=== PATIENT | female | born 1995 | race Two or more races ===

== ENCOUNTER 2019-05-23 19:51 | Emergency (ER) | payer MEDICAID ==
[2019-05-23 20:26] VITALS: BP 117/65
--- NOTE | 2019-05-23 20:50 | ED ---
Upper Extremity Pain - HPI Summary HPI Summary: 23 yr old female with the complaint of left forearm pain and tingling. Onset of pain a couple of weeks ago. The pain is present for prolonged times and she gets tingling in her fingers at times in that hand. She has no pain in the upper arm or chest. No SOB. She stopped control not too long ago. Her symptoms are moderate. - History of Current Complaint Chief Complaint: UCUpperExtremity Stated Complaint: LT ARM NUMBNESS Time Seen by Provider: 05/23/19 20:34 Hx Last Menstrual Period: 05/12/19 - Allergies/Home Medications Allergies/Adverse Reactions: Allergies Allergy/AdvReac Type Severity Reaction Status Date / Time metronidazole [From Flagyl] Allergy Severe throat Verified 05/23/19 20:12 swelling, confusion Home Medications: Home Medications NK [No Home Medications Reported] 05/23/19 [History Confirmed 05/23/19] PMH/Surg Hx/FS Hx/Imm Hx Infectious Disease History: No Infectious Disease History: Denies: Traveled Outside the [place] in Last 30 Days - Family History Known Family History: Positive: None - Social History Occupation: Student Alcohol Use: Occasionally Substance Use Type: Reports: None Smoking Status (MU): Never Smoked Tobacco Review of Systems Constitutional: Negative Negative: Chest Pain Negative: Shortness Of Breath Positive: Other - forearm pain All Other Systems Reviewed And Are Negative: Yes Physical Exam Triage Information Reviewed: Yes Vital Signs On Initial Exam: Initial Vitals Temp Pulse Resp BP Pulse Ox 99 F 79 18 117/65 99 05/23/19 20:13 05/23/19 20:13 05/23/19 20:13 05/23/19 20:13 05/23/19 20:13 Vital Signs Reviewed: Yes Appearance: Positive: Well-Appearing, No Pain Distress Skin: Positive: Warm, Skin Color Reflects Adequate Perfusion Head/Face: Positive: Normal Head/Face Inspection Eyes: Positive: EOMI ENT: Positive: Normal ENT inspection Neck: Positive: Nontender Respiratory/Lung Sounds: Positive: Clear to Auscultation, Breath Sounds Present Cardiovascular: Positive: RRR, Pulses are Symmetrical in both Upper and Lower Extremities Abdomen Description: Negative: Distended Musculoskeletal: Positive: Strength/ROM Intact, Other - arms appear symmetric. Good radial pulses. She has tenderness in left antecubital area with mild veing prominence compared to the right. No tenderness of the left upper arm. Neurological: Positive: Sensory/Motor Intact, Alert, Oriented to Person Place, Time, CN Intact II-III Psychiatric: Positive: Normal Diagnostics - Vital Signs Vital Signs Temp Pulse Resp BP Pulse Ox 05/23/19 20:13 99 F 79 18 117/65 99 - Laboratory Lab Statement: Any lab studies that have been ordered have been reviewed, and results considered in the medical decision making process. Course/Dx - Course Course Of Treatment: left forearm pain. To the ER for further work up. disscussed need for US to eval for DVT. - Diagnoses Provider Diagnoses: Left forearm pain Discharge ED - Sign-Out/Discharge Documenting (check all that apply): Patient Departure All imaging exams completed and their final reports reviewed: No Studies - Discharge Plan Condition: Good Disposition: HOME Patient Education Materials: Arm Pain (ED) Referrals: [facility] [Outside] No Primary Care Phys,[facility] [Primary Care Provider] - Additional Instructions: GO TO THE ER NOW FOR FURTHER WORK UP FOR YOUR FOREARM PAIN>. DO NOT DELAY GOING. - Billing Disposition and Condition Condition: GOOD Disposition: Home
== END 2019-05-23 20:50 | disposition home or self-care (01) ==
LOC: UCCORT 19:51
DX: M79.632 Pain in left forearm (principal); Z88.1 Allergy status to other antibiotic agents; R20.2 Paresthesia of skin
CPT/HCPCS: 99201; G0463